=== PATIENT | female | born 1995 | race Caucasian/White ===

== ENCOUNTER 2021-06-26 23:47 | Inpatient (IN) | payer OTHER, SELFPAY ==
[2021-06-27] MEDS ORDERED: Ondansetron PF 4 MG/2 ML Vial ONE (00:08)
[2021-06-27] MEDS ORDERED: Promethazine HCl 25 MG/ML VIAL ONE (00:09)
[2021-06-27 00:10] LABS: #Basophils 0.1 10x3/uL (0.0-0.2); #Eosinphils 0.1 10x3/uL (0.0-0.5); #Monocytes 0.3 10x3/uL (0.0-1.1); #Neutrophils 9.1 10x3/uL (1.5-8.4); %Basophils 0.5 % (0.0-2.0); %Eosinophils 0.6 % (0.0-6.0); %Lymphocytes 13.2 % (18.0-47.0); %Monocytes 2.8 % (0.0-10.0); %Neutrophils 82.4 % (40.0-75.0); Mean Corpuscular HGB CONC 31.2 g/dL (32.0-36.0); Mean Corpuscular Hemoglobin 28.8 pg (27.0-33.0); Mean Corpuscular Volume 92.3 fl (81.6-98.3); Platelet Count 314 10x3/uL (150-450); RBC Distribution Width 13.9 % (11.5-14.5); Red Blood Cell (RBC) Count 4.17 10x6/uL (3.90-5.03)
[2021-06-27 00:15] LABS: Actual Bicarbonate (HCO3v) 13 mEq/L (22-28); Base Excess -13.3 mEq/L (-2.0 to +3.0); Calcium, Ionized (venous) 1.17 mmol/L (1.16-1.32); Chloride (VBG) 100 mmol/L (98-106); Hemoglobin (Hb) 13.2 g/dL (11.7-15.5); Potassium (VBG) 4.57 mmol/L (3.70-5.30); Puncture Site Other Site; Sodium 134.7 mmol/L (133-146); pH (venous) 7.24 (7.32-7.43)
[2021-06-27 00:29] LABS: ALT (SGPT) 13 U/L (8-55); AST (SGOT) 17 U/L (5-34); Albumin 4.5 g/dL (3.5-5.0); Alkaline Phosphatase 64 U/L (40-110); Anion Gap 25 mmol/L (10-20); BUN (Urea Nitrogen) 9 mg/dL (7.0-18.7); Bilirubin, Total 0.5 mg/dL (0.2-1.2); Calc. Creatinine Clearance 0 mL/min (70-130); Calcium 9.3 mg/dL (7.8-10.44); Carbon Dioxide 12 mmol/L (22-29); Chloride 103 mmol/L (98-107); Globulin 3.3 g/dL (2.4-3.5); Glucose 387 mg/dL (70-105); Potassium 4.7 mmol/L (3.5-5.1); Protein, Total 7.8 g/dL (6.0-8.3); Sodium 135 mmol/L (136-145)
[2021-06-27] MEDS ORDERED: INSULIN REGULAR IN 0.9 % NACL 100 UNIT/100 ML BAG ONE (00:56)
[2021-06-27] MEDS ORDERED: Calcium Carbonate 500 MG ChewTAB PO PRN (01:11)
[2021-06-27] MEDS ORDERED: Electrolyte Replacement Protocol IVPB SCH (01:11)
[2021-06-27] MEDS ORDERED: Guaifenesin DM 100-10/5 ML UDCUP PO PRN (01:11)
[2021-06-27] MEDS ORDERED: Acetaminophen 325 MG TAB PO PRN (01:11)
[2021-06-27] MEDS ORDERED: Lactated Ringer's 1,000 ML IV SCH (01:15)
[2021-06-27] MEDS ORDERED: INSULIN REGULAR IN 0.9 % NACL 100 UNIT in Premix Bag 1 BAG IVPB SCH (01:15)
[2021-06-27] MEDS ORDERED: Sodium Chloride 0.9% 1,000 ML IV SCH (01:15)
[2021-06-27] MEDS ORDERED: Promethazine HCl 12.5 MG in Sodium Chloride 0.9% 50 ML IVPB PRN (01:16)
[2021-06-27 01:21] LABS: BHCG - Serum POSITIVE (NEGATIVE); Pregs Control Background? CLEAR/WHITE (CLR/WHITE); Pregs Control Bar Appear? YES (CONTROL BAR)
[2021-06-27 01:28] LABS: Bilirubin Neg (Negative); Blood, Urine Negative (Negative); Clarity Slightly Cloudy (Clear); Glucose, Urine (Dipstick) >=1000 mg/dL (Negative); Ketone, Urine 150 mg/dL (Negative); Leukocyte 25 (Negative); Nitrite Negative (Negative); Protein, Urine (Dipstick) Negative (Neg-Trace); Urobilinogen Normal mg/dL (Less than 2)
[2021-06-27 01:36] LABS: Bacteria/HPF 1+ HPF (None Seen); RBC/HPF 0-3 HPF (0-3)
[2021-06-27 01:37] LABS: Mucous/LPF None Seen LPF (<2+)
[2021-06-27] MEDS ORDERED: NS 0.9% w/ 20 MEQ KCL 1,000 ML ONE (01:47)
[2021-06-27] MEDS ORDERED: Famotidine/PF 20 mg/2ml Vial SLOW IVP SCH (02:00)
[2021-06-27 02:07] LABS: SARS-CoV-2 NAA Rapid Test Not Detected (NotDetected)
[2021-06-27] MEDS: Ondansetron PF 4 MG/2 ML Vial IVP PRN ×4 (02:20→19:53)
[2021-06-27 03:15] LABS: Actual Bicarbonate (HCO3v) 15 mEq/L (22-28); Calcium, Ionized (venous) 1.11 mmol/L (1.16-1.32); Chloride (VBG) 107 mmol/L (98-106); Hemoglobin (Hb) 11.9 g/dL (11.7-15.5); Potassium (VBG) 4.06 mmol/L (3.70-5.30); Puncture Site Other Site; RapidComm Collect By CSUC.CNC; Sodium 137.6 mmol/L (133-146)
[2021-06-27 03:22] LABS: #Monocytes 0.3 10x3/uL (0.0-1.1); #Neutrophils 8.6 10x3/uL (1.5-8.4); %Basophils 0.2 % (0.0-2.0); %Eosinophils 0.2 % (0.0-6.0); %Lymphocytes 8.4 % (18.0-47.0); %Monocytes 2.6 % (0.0-10.0); %Neutrophils 88.1 % (40.0-75.0); Hemoglobin 10.8 g/dL (12.0-15.5); Mean Corpuscular HGB CONC 31.2 g/dL (32.0-36.0); Mean Corpuscular Hemoglobin 28.9 pg (27.0-33.0); Mean Corpuscular Volume 92.5 fl (81.6-98.3); Mean Platelet Volume 9.7 fl (7.4-10.4); Platelet Count 276 10x3/uL (150-450); RBC Distribution Width 13.9 % (11.5-14.5); Red Blood Cell (RBC) Count 3.74 10x6/uL (3.90-5.03); White Blood Cell (WBC) Count 9.8 10x3/uL (3.5-10.5)
[2021-06-27 03:44] LABS: Anion Gap 15 mmol/L (10-20); BUN (Urea Nitrogen) 8 mg/dL (7.0-18.7); Calc. Creatinine Clearance 118 mL/min (70-130); Calcium 7.6 mg/dL (7.8-10.44); Carbon Dioxide 14 mmol/L (22-29); Chloride 113 mmol/L (98-107); Glucose 190 mg/dL (70-105); Magnesium 1.8 mg/dL (1.6-2.6); Phosphorus 1.9 mg/dL (2.3-4.7); Potassium 4.2 mmol/L (3.5-5.1); Sodium 138 mmol/L (136-145)
[2021-06-27] MEDS: Dextrose 5 %-0.45 % NaCl 1,000 ML IV SCH (03:55)
[2021-06-27 04:44] LABS: Amphetamine Detected (NotDetected); Barbiturates Screen Not Detected (NotDetected); Benzodiazepine Screen Not Detected (NotDetected); Cocaine Metabolite Screen Not Detected (NotDetected); Methadone Not Detected (NotDetected); Methamphetamine Detected (NotDetected); Opiate Screen Not Detected (NotDetected); Oxycodone Screen Not Detected (NotDetected); Phencyclidine (PCP) Not Detected (NotDetected); THC/Cannabinoid Screen Detected (NotDetected); Tricyclic Screen Not Detected (NotDetected)
[2021-06-27] MEDS ORDERED: Potassium Phosphate 30 MMOL in Sodium Chloride 0.9% 500 ML IVPB SCH (05:15)
[2021-06-27] MEDS ORDERED: Dextrose 5% in Water 1,000 ML IV PRN ×2 (05:30→08:30)
[2021-06-27] MEDS ORDERED: Dextrose 50% Abboject 50 ML SYRINGE IVP PRN (05:30)
[2021-06-27] MEDS ORDERED: Magnesium 2 GM/50 ML 2 GM in Premix Bag 1 BAG IVPB SCH (06:15)
[2021-06-27 07:58] LABS: Actual Bicarbonate (HCO3v) 21 mEq/L (22-28); Base Excess -4.5 mEq/L (-2.0 to +3.0); Calcium, Ionized (venous) 1.05 mmol/L (1.16-1.32); Chloride (VBG) 107 mmol/L (98-106); Hemoglobin (Hb) 11.2 g/dL (11.7-15.5); Potassium (VBG) 3.68 mmol/L (3.70-5.30); Puncture Site Other Site; RapidComm Collect By LAB; Sodium 134.7 mmol/L (133-146); pH (venous) 7.33 (7.32-7.43)
[2021-06-27 08:02] LABS: Anion Gap 10 mmol/L (10-20); BUN (Urea Nitrogen) 8 mg/dL (7.0-18.7); Calc. Creatinine Clearance 138 mL/min (70-130); Calcium 7.3 mg/dL (7.8-10.44); Carbon Dioxide 18 mmol/L (22-29); Chloride 111 mmol/L (98-107); Glucose 113 mg/dL (70-105); Magnesium 1.7 mg/dL (1.6-2.6); Phosphorus 2.4 mg/dL (2.3-4.7); Potassium 3.7 mmol/L (3.5-5.1); Sodium 135 mmol/L (136-145)
[2021-06-27] MEDS: Enoxaparin Sodium 40 MG/0.4 ML SYRINGE SC SCH (08:25)
[2021-06-27] MEDS: Famotidine/PF 20 mg/2ml Vial SLOW IVP SCH ×2 (08:25→20:22)
[2021-06-27] MEDS ORDERED: Dextrose 50% Abboject 50 ML SYRINGE SLOW IVP PRN (08:30)
[2021-06-27] MEDS: Lantus 1000 UNITS/10 ML VIAL SC SCH (09:02)
[2021-06-27] MEDS ORDERED: NS 0.9% w/ 20 MEQ KCL 1,000 ML/1,000 ML BAG IV SCH (10:30)
[2021-06-27] MEDS: HYDROcodone/Acetaminophen 5/325 mg Tablet PO PRN ×2 (11:39→19:53)
[2021-06-27 11:45] LABS: Hemoglobin A1c 11.1 % (4.0-6.0)
[2021-06-27 12:42] LABS: Anion Gap 12 mmol/L (10-20); BUN (Urea Nitrogen) 8 mg/dL (7.0-18.7); Calc. Creatinine Clearance 132 mL/min (70-130); Calcium 7.5 mg/dL (7.8-10.44); Carbon Dioxide 18 mmol/L (22-29); Chloride 109 mmol/L (98-107); Glucose 90 mg/dL (70-105); Magnesium 2.5 mg/dL (1.6-2.6); Phosphorus 4.1 mg/dL (2.3-4.7); Potassium 4.3 mmol/L (3.5-5.1); Sodium 135 mmol/L (136-145)
[2021-06-27] MEDS: HumaLOG 300 UNITS/3 ML VIAL SC PRN ×2 (15:18→22:26)
[2021-06-28] MEDS: Ondansetron PF 4 MG/2 ML Vial IVP PRN ×2 (04:12→14:16)
[2021-06-28 05:46] LABS: Anion Gap 9 mmol/L (10-20); BUN (Urea Nitrogen) 6 mg/dL (7.0-18.7); Calc. Creatinine Clearance 134 mL/min (70-130); Calcium 7.9 mg/dL (7.8-10.44); Carbon Dioxide 22 mmol/L (22-29); Chloride 109 mmol/L (98-107); Glucose 72 mg/dL (70-105); Magnesium 2.1 mg/dL (1.6-2.6); Phosphorus 2.5 mg/dL (2.3-4.7); Potassium 3.6 mmol/L (3.5-5.1); Sodium 136 mmol/L (136-145)
[2021-06-28] MEDS: HumaLOG 300 UNITS/3 ML VIAL SC PRN ×2 (06:31→22:36)
[2021-06-28] MEDS: Famotidine/PF 20 mg/2ml Vial SLOW IVP SCH (08:56)
[2021-06-28] MEDS: Lantus 1000 UNITS/10 ML VIAL SC SCH (08:56)
[2021-06-28] MEDS: Enoxaparin Sodium 40 MG/0.4 ML SYRINGE SC SCH (10:03)
[2021-06-28] MEDS ORDERED: Docusate 100 MG CAP PO PRN (13:58)
[2021-06-28] MEDS ORDERED: Bisacodyl 10 MG SUPP PR SCH (14:00)
[2021-06-28] MEDS ORDERED: Lidocaine 2% Viscous Solution 20 ML, Aluminum & Magnesium Hydroxide 30 ML, Donnatal Eli... SSW SCH (14:00)
[2021-06-28] MEDS ORDERED: Morphine 4 MG/ML VIAL SLOW IVP SCH (14:00)
[2021-06-28] MEDS: NS 0.9% w/ 20 MEQ KCL 1,000 ML/1,000 ML BAG IV SCH ×2 (14:09→21:33)
[2021-06-28] MEDS ORDERED: Lidocaine 2% Viscous Solution 10 ML, Aluminum & Magnesium Hydroxide 30 ML SSW SCH (14:30)
[2021-06-28] MEDS: Dextrose 5 %-0.45 % NaCl 1,000 ML IV SCH (14:32)
[2021-06-28] MEDS: HYDROcodone/Acetaminophen 5/325 mg Tablet PO PRN (16:06)
[2021-06-28] MEDS: Dicyclomine 10 MG CAP PO SCH ×2 (16:06→21:33)
[2021-06-28] MEDS: Pantoprazole 40 MG VIAL IVP SCH (21:35)
[2021-06-29 09:33] LABS: #Monocytes 0.5 10x3/uL (0.0-1.1); #Neutrophils 7.2 10x3/uL (1.5-8.4); %Basophils 0.3 % (0.0-2.0); %Eosinophils 0.2 % (0.0-6.0); %Lymphocytes 12.6 % (18.0-47.0); %Monocytes 5.1 % (0.0-10.0); %Neutrophils 81.3 % (40.0-75.0); Hemoglobin 10.1 g/dL (12.0-15.5); Mean Corpuscular HGB CONC 31.3 g/dL (32.0-36.0); Mean Corpuscular Hemoglobin 28.1 pg (27.0-33.0); Mean Platelet Volume 9.9 fl (7.4-10.4); Platelet Count 246 10x3/uL (150-450); RBC Distribution Width 13.9 % (11.5-14.5); Red Blood Cell (RBC) Count 3.59 10x6/uL (3.90-5.03); White Blood Cell (WBC) Count 8.8 10x3/uL (3.5-10.5)
[2021-06-29 09:58] LABS: Anion Gap 13 mmol/L (10-20); BUN (Urea Nitrogen) 6 mg/dL (7.0-18.7); Calc. Creatinine Clearance 134 mL/min (70-130); Calcium 7.9 mg/dL (7.8-10.44); Carbon Dioxide 20 mmol/L (22-29); Chloride 106 mmol/L (98-107); Glucose 258 mg/dL (70-105); Magnesium 1.9 mg/dL (1.6-2.6); Potassium 4.4 mmol/L (3.5-5.1); Sodium 135 mmol/L (136-145)
[2021-06-29] MEDS: Dicyclomine 10 MG CAP PO SCH ×4 (10:42→20:56)
[2021-06-29] MEDS: Lantus 1000 UNITS/10 ML VIAL SC SCH (10:42)
[2021-06-29] MEDS: HYDROcodone/Acetaminophen 5/325 mg Tablet PO PRN ×2 (10:47→20:56)
[2021-06-29] MEDS ORDERED: Mag-Al Plus 1200 MG/1200 MG/120 MG/30 ML UDCUP PO PRN (10:55)
[2021-06-29] MEDS: Enoxaparin Sodium 40 MG/0.4 ML SYRINGE SC SCH (11:32)
[2021-06-29] MEDS ORDERED: Magnesium 2 GM/50 ML 2 GM in Premix Bag 1 BAG IVPB SCH (12:00)
[2021-06-29] MEDS: Pantoprazole 40 MG VIAL IVP SCH ×3 (13:37→20:56)
[2021-06-29] MEDS: NS 0.9% w/ 20 MEQ KCL 1,000 ML/1,000 ML BAG IV SCH ×2 (13:38→15:53)
[2021-06-29] MEDS: Ondansetron PF 4 MG/2 ML Vial IVP PRN ×2 (14:29→20:55)
[2021-06-30] MEDS: NS 0.9% w/ 20 MEQ KCL 1,000 ML/1,000 ML BAG IV SCH (00:48)
[2021-06-30 05:17] LABS: #Eosinphils 0.1 10x3/uL (0.0-0.5); #Monocytes 0.6 10x3/uL (0.0-1.1); #Neutrophils 4.6 10x3/uL (1.5-8.4); %Basophils 0.4 % (0.0-2.0); %Eosinophils 1.7 % (0.0-6.0); %Lymphocytes 30.1 % (18.0-47.0); %Monocytes 7.3 % (0.0-10.0); %Neutrophils 60.2 % (40.0-75.0); Hemoglobin 9.7 g/dL (12.0-15.5); Mean Corpuscular HGB CONC 32.7 g/dL (32.0-36.0); Mean Corpuscular Volume 88.7 fl (81.6-98.3); Platelet Count 242 10x3/uL (150-450); RBC Distribution Width 14.3 % (11.5-14.5); Red Blood Cell (RBC) Count 3.35 10x6/uL (3.90-5.03); White Blood Cell (WBC) Count 7.7 10x3/uL (3.5-10.5)
[2021-06-30 05:30] LABS: Anion Gap 11 mmol/L (10-20); BUN (Urea Nitrogen) 6 mg/dL (7.0-18.7); Calc. Creatinine Clearance 134 mL/min (70-130); Calcium 7.8 mg/dL (7.8-10.44); Carbon Dioxide 22 mmol/L (22-29); Chloride 108 mmol/L (98-107); Magnesium 1.8 mg/dL (1.6-2.6); Potassium 3.7 mmol/L (3.5-5.1); Sodium 137 mmol/L (136-145)
[2021-06-30 05:32] LABS: Glucose 48 mg/dL (70-105)
[2021-06-30] MEDS: HYDROcodone/Acetaminophen 5/325 mg Tablet PO PRN ×2 (05:58→09:43)
[2021-06-30] MEDS: Ondansetron PF 4 MG/2 ML Vial IVP PRN ×2 (05:58→11:21)
[2021-06-30] MEDS ORDERED: Magnesium 2 GM/50 ML 2 GM in Premix Bag 1 BAG IVPB SCH (06:15)
[2021-06-30 08:02] VITALS: BMI 23.0
[2021-06-30] MEDS: Enoxaparin Sodium 40 MG/0.4 ML SYRINGE SC SCH (09:44)
[2021-06-30] MEDS: Dicyclomine 10 MG CAP PO SCH (09:44)
[2021-06-30] MEDS: Lantus 1000 UNITS/10 ML VIAL SC SCH (09:45)
[2021-06-30] MEDS: Pantoprazole 40 MG VIAL IVP SCH (09:45)
[2021-06-30 12:27] VITALS: BP 98/55; TEMP 98.9
== END 2021-06-30 13:01 | disposition home or self-care (01) | DRG 831 ==
LOC: CSHERS 23:47 → EDBD 06-27 01:47 → CSHIMCU 06-27 01:47 → CSHTELE 06-27 23:23
PROVIDERS: ADMIT Student in an Organized Health Care Education/Training Program; ATTEND Internal Medicine
DX: O24.011 Pre-existing type 1 diabetes mellitus, in pregnancy, first trimester (principal); E10.10 Type 1 diabetes mellitus with ketoacidosis without coma; O99.321 Drug use complicating pregnancy, first trimester; E86.0 Dehydration; F12.10 Cannabis abuse, uncomplicated; Z20.822 Contact with and (suspected) exposure to COVID-19; F32.A Depression, unspecified; F15.10 Other stimulant abuse, uncomplicated; O99.281 Endocrine, nutritional and metabolic diseases complicating pregnancy, first trimester; O99.341 Other mental disorders complicating pregnancy, first trimester; F41.9 Anxiety disorder, unspecified; F43.10 Post-traumatic stress disorder, unspecified; Z90.49 Acquired absence of other specified parts of digestive tract; Z3A.01 Less than 8 weeks gestation of pregnancy
CPT/HCPCS: 36415; 36416; 71045; 80048; 80053; 80306; 81003; 81015; 82010; 82805; 83036; 83735; 84100; 84702; 84703; 85025; C9113; J1815; J2270; J2405; J2550; J3475; J3480; J7030; J7042; J7050; S0028; U0002

== ENCOUNTER 2021-07-08 11:38 | Emergency (ER) | payer OTHER ==
[2021-07-08] MEDS ORDERED: Ondansetron PF 4 MG/2 ML Vial ONE (12:23)
[2021-07-08 12:29] LABS: #Basophils 0.1 10x3/uL (0.0-0.2); #Eosinphils 0.2 10x3/uL (0.0-0.5); #Monocytes 0.5 10x3/uL (0.0-1.1); #Neutrophils 6.2 10x3/uL (1.5-8.4); %Basophils 0.6 % (0.0-2.0); %Eosinophils 1.7 % (0.0-6.0); %Lymphocytes 21.8 % (18.0-47.0); %Monocytes 5.2 % (0.0-10.0); %Neutrophils 70.5 % (40.0-75.0); Hemoglobin 10.5 g/dL (12.0-15.5); Mean Corpuscular HGB CONC 32.4 g/dL (32.0-36.0); Mean Corpuscular Hemoglobin 28.9 pg (27.0-33.0); Mean Corpuscular Volume 89.3 fl (81.6-98.3); Mean Platelet Volume 9.2 fl (7.4-10.4); Platelet Count 297 10x3/uL (150-450); RBC Distribution Width 14.1 % (11.5-14.5); Red Blood Cell (RBC) Count 3.63 10x6/uL (3.90-5.03); White Blood Cell (WBC) Count 8.8 10x3/uL (3.5-10.5)
[2021-07-08 12:35] LABS: Actual Bicarbonate (HCO3v) 23 mEq/L (22-28); Base Excess 0.1 mEq/L (-2.0 to +3.0); Calcium, Ionized (venous) 1.07 mmol/L (1.16-1.32); Chloride (VBG) 100 mmol/L (98-106); Hemoglobin (Hb) 11.3 g/dL (11.7-15.5); Potassium (VBG) 4.12 mmol/L (3.70-5.30); Puncture Site Other Site; Sodium 131.5 mmol/L (133-146); pH (venous) 7.49 (7.32-7.43)
[2021-07-08 12:43] LABS: ALT (SGPT) 12 U/L (8-55); AST (SGOT) 9 U/L (5-34); Albumin 3.9 g/dL (3.5-5.0); Alkaline Phosphatase 56 U/L (40-110); Anion Gap 13 mmol/L (10-20); BUN (Urea Nitrogen) 11 mg/dL (7.0-18.7); Bilirubin, Total 0.3 mg/dL (0.2-1.2); Calc. Creatinine Clearance 0 mL/min (70-130); Calcium 8.8 mg/dL (7.8-10.44); Carbon Dioxide 25 mmol/L (22-29); Chloride 101 mmol/L (98-107); Globulin 2.7 g/dL (2.4-3.5); Glucose 255 mg/dL (70-105); Lipase 50 U/L (8-78); Magnesium 1.8 mg/dL (1.6-2.6); Protein, Total 6.6 g/dL (6.0-8.3); Sodium 135 mmol/L (136-145)
[2021-07-08 13:41] LABS: Bilirubin Neg (Negative); Blood, Urine Negative (Negative); Clarity Slightly Cloudy (Clear); Glucose, Urine (Dipstick) >=1000 mg/dL (Negative); Ketone, Urine Negative (Negative); Leukocyte 100 (Negative); Nitrite Negative (Negative); Protein, Urine (Dipstick) Negative (Neg-Trace); Urobilinogen Normal mg/dL (Less than 2)
[2021-07-08 14:06] LABS: Bacteria/HPF 2+ HPF (None Seen); RBC/HPF 0-3 HPF (0-3); Trichomonas/HPF 1+ HPF (None Seen); WBC/HPF 0-3 HPF (0-3)
[2021-07-08] MEDS ORDERED: cefTRIAXone\\ROCEPHIN 1 GM VIAL ONE (15:09)
[2021-07-08] MEDS ORDERED: metroNIDAZOLE 500 MG TAB ONE (15:14)
== END 2021-07-08 15:32 | disposition home or self-care (01) ==
LOC: CSHERS 11:38
DX: O99.281 Endocrine, nutritional and metabolic diseases complicating pregnancy, first trimester (principal); E10.65 Type 1 diabetes mellitus with hyperglycemia; O23.41 Unspecified infection of urinary tract in pregnancy, first trimester; Z3A.11 11 weeks gestation of pregnancy
CPT/HCPCS: 36415; 36416; 80053; 81003; 81015; 82010; 82805; 83605; 83690; 83735; 84702; 85025; 93005; 96374; 96375; J0696; J2405

== ENCOUNTER 2021-07-18 07:25 | Inpatient (IN) | payer OTHER ==
[2021-07-18] MEDS ORDERED: Ondansetron PF 4 MG/2 ML Vial ONE (08:08)
[2021-07-18 08:13] LABS: Actual Bicarbonate (HCO3v) 23 mEq/L (22-28); Base Excess -3.4 mEq/L (-2.0 to +3.0); Calcium, Ionized (venous) 1.15 mmol/L (1.16-1.32); Chloride (VBG) 98 mmol/L (98-106); Hemoglobin (Hb) 12.2 g/dL (11.7-15.5); Potassium (VBG) 4.34 mmol/L (3.70-5.30); Puncture Site Other Site; RapidComm Collect By CBL; Sodium 124.8 mmol/L (133-146); pH (venous) 7.32 (7.32-7.43)
[2021-07-18 08:20] LABS: #Basophils 0.1 10x3/uL (0.0-0.2); #Eosinphils 0.2 10x3/uL (0.0-0.5); #Monocytes 0.7 10x3/uL (0.0-1.1); #Neutrophils 13.3 10x3/uL (1.5-8.4); %Basophils 0.4 % (0.0-2.0); %Eosinophils 1.4 % (0.0-6.0); %Lymphocytes 9.8 % (18.0-47.0); %Monocytes 4.3 % (0.0-10.0); %Neutrophils 83.7 % (40.0-75.0); Hemoglobin 11.4 g/dL (12.0-15.5); Mean Corpuscular HGB CONC 32.9 g/dL (32.0-36.0); Mean Corpuscular Hemoglobin 28.8 pg (27.0-33.0); Mean Corpuscular Volume 87.4 fl (81.6-98.3); Mean Platelet Volume 9.5 fl (7.4-10.4); Platelet Count 330 10x3/uL (150-450); RBC Distribution Width 13.6 % (11.5-14.5); Red Blood Cell (RBC) Count 3.96 10x6/uL (3.90-5.03); White Blood Cell (WBC) Count 15.9 10x3/uL (3.5-10.5)
[2021-07-18 08:23] LABS: Magnesium 1.9 mg/dL (1.6-2.6)
[2021-07-18 08:26] LABS: ALT (SGPT) 10 U/L (8-55); AST (SGOT) 9 U/L (5-34); Albumin 4.2 g/dL (3.5-5.0); Alkaline Phosphatase 70 U/L (40-110); Anion Gap 16 mmol/L (10-20); BUN (Urea Nitrogen) 10 mg/dL (7.0-18.7); Bilirubin, Total 0.6 mg/dL (0.2-1.2); Calc. Creatinine Clearance 0 mL/min (70-130); Calcium 9.1 mg/dL (7.8-10.44); Carbon Dioxide 22 mmol/L (22-29); Chloride 99 mmol/L (98-107); Globulin 2.8 g/dL (2.4-3.5); Glucose 374 mg/dL (70-105); Lipase 40 U/L (8-78); Phosphorus 4.3 mg/dL (2.3-4.7); Potassium 4.5 mmol/L (3.5-5.1); Sodium 132 mmol/L (136-145)
[2021-07-18] MEDS ORDERED: Pantoprazole 40 MG VIAL ONE (08:39)
[2021-07-18] MEDS ORDERED: Insulin Regular 300 UNITS/3 ML VIAL ONE (08:40)
[2021-07-18] MEDS ORDERED: Azithromycin 500 MG VIAL ONE (09:17)
[2021-07-18] MEDS ORDERED: Acetaminophen 500 MG TAB ONE (09:30)
[2021-07-18 10:02] LABS: Bilirubin Neg (Negative); Blood, Urine Negative (Negative); Clarity Slightly Cloudy (Clear); Glucose, Urine (Dipstick) >=1000 mg/dL (Negative); Ketone, Urine 50 mg/dL (Negative); Leukocyte 500 (Negative); Nitrite Negative (Negative); Protein, Urine (Dipstick) Negative (Neg-Trace); Specific Gravity, Urine 1.015 (1.002-1.036); Urobilinogen Normal mg/dL (Less than 2)
[2021-07-18 10:17] LABS: RBC/HPF 0-3 HPF (0-3)
[2021-07-18 10:18] LABS: Bacteria/HPF 2+ HPF (None Seen)
[2021-07-18] MEDS ORDERED: Dextrose 5% in Water 1,000 ML IV PRN (10:47)
[2021-07-18] MEDS ORDERED: Dextrose 50% Abboject 50 ML SYRINGE SLOW IVP PRN (10:47)
[2021-07-18 11:22] LABS: SARS-CoV-2 NAA Rapid Test Not Detected (NotDetected)
[2021-07-18] MEDS: Ondansetron PF 4 MG/2 ML Vial IVP PRN ×2 (13:21→18:20)
[2021-07-18 13:31] VITALS: BMI 21.4
[2021-07-18] MEDS: Sodium Chloride 0.9% 1,000 ML IV SCH (13:43)
[2021-07-18] MEDS: metroNIDAZOLE 500 MG in Premix Bag 1 BAG IVPB SCH (13:54)
[2021-07-18] MEDS ORDERED: Promethazine HCl 6.25 MG in Sodium Chloride 0.9% 50 ML IVPB PRN (13:57)
[2021-07-18] MEDS ORDERED: Metoclopramide HCl 10 MG TAB PO PRN (15:37)
[2021-07-18] MEDS ORDERED: ALPRAZolam 1 MG TAB PO PRN (15:37)
[2021-07-18] MEDS ORDERED: Propranolol 40 MG TAB PO PRN (15:37)
[2021-07-18] MEDS: HumaLOG 300 UNITS/3 ML VIAL SC PRN (16:26)
[2021-07-18] MEDS ORDERED: Clindamycin 150 MG CAP PO SCH (17:00)
[2021-07-18] MEDS ORDERED: Cepastat Lozenges 1 LOZ PO PRN (18:05)
[2021-07-18] MEDS: Dicyclomine 20 MG TAB PO SCH ×2 (18:20→22:14)
[2021-07-18] MEDS: Clindamycin/D5W 300 MG/50 ML BAG IVPB SCH (18:21)
[2021-07-18] MEDS ORDERED: Acetaminophen 325 MG TAB PO PRN (18:32)
[2021-07-18] MEDS ORDERED: FLU VACC QS2021-22(6MOS UP)/PF 60 MCG/0.5 ML SYRINGE IM ONE (21:45)
[2021-07-18] MEDS: Mirtazapine 15 MG TAB PO SCH (22:15)
[2021-07-18] MEDS: Lantus 1000 UNITS/10 ML VIAL SC SCH (22:15)
[2021-07-19] MEDS: Ondansetron PF 4 MG/2 ML Vial IVP PRN ×3 (01:08→13:07)
[2021-07-19] MEDS: Sodium Chloride 0.9% 1,000 ML IV SCH ×3 (01:08→16:14)
[2021-07-19] MEDS: metroNIDAZOLE 500 MG in Premix Bag 1 BAG IVPB SCH ×2 (01:11→13:06)
[2021-07-19] MEDS: Clindamycin/D5W 300 MG/50 ML BAG IVPB SCH ×3 (02:35→17:35)
[2021-07-19 04:45] LABS: #Basophils 0.1 10x3/uL (0.0-0.2); #Eosinphils 0.2 10x3/uL (0.0-0.5); #Monocytes 0.5 10x3/uL (0.0-1.1); #Neutrophils 8.3 10x3/uL (1.5-8.4); %Basophils 0.5 % (0.0-2.0); %Lymphocytes 15.6 % (18.0-47.0); %Monocytes 4.8 % (0.0-10.0); %Neutrophils 76.4 % (40.0-75.0); Hemoglobin 9.4 g/dL (12.0-15.5); Mean Corpuscular HGB CONC 33.5 g/dL (32.0-36.0); Mean Corpuscular Hemoglobin 29.5 pg (27.0-33.0); Mean Corpuscular Volume 88.1 fl (81.6-98.3); Mean Platelet Volume 9.7 fl (7.4-10.4); Platelet Count 272 10x3/uL (150-450); RBC Distribution Width 13.8 % (11.5-14.5); Red Blood Cell (RBC) Count 3.19 10x6/uL (3.90-5.03); White Blood Cell (WBC) Count 10.8 10x3/uL (3.5-10.5)
[2021-07-19 04:49] LABS: Anion Gap 13 mmol/L (10-20); BUN (Urea Nitrogen) 5 mg/dL (7.0-18.7); Calc. Creatinine Clearance 135 mL/min (70-130); Calcium 8.1 mg/dL (7.8-10.44); Carbon Dioxide 19 mmol/L (22-29); Chloride 107 mmol/L (98-107); Glucose 238 mg/dL (70-105); Potassium 3.9 mmol/L (3.5-5.1); Sodium 135 mmol/L (136-145)
[2021-07-19] MEDS: Prenatal Vitamin 1 TAB PO SCH (08:14)
[2021-07-19] MEDS: Dicyclomine 20 MG TAB PO SCH ×3 (08:14→20:47)
[2021-07-19 10:18] LABS: Bilirubin Neg (Negative); Blood, Urine Negative (Negative); Clarity Slightly Cloudy (Clear); Glucose, Urine (Dipstick) >=1000 mg/dL (Negative); Ketone, Urine 150 mg/dL (Negative); Leukocyte 500 (Negative); Nitrite Negative (Negative); Protein, Urine (Dipstick) 15 mg/dl (Neg-Trace); Specific Gravity, Urine 1.015 (1.002-1.036); Urobilinogen Normal mg/dL (Less than 2)
[2021-07-19 10:26] LABS: Amphetamine Not Detected (NotDetected); Barbiturates Screen Not Detected (NotDetected); Benzodiazepine Screen Detected (NotDetected); Cocaine Metabolite Screen Not Detected (NotDetected); Methadone Not Detected (NotDetected); Methamphetamine Not Detected (NotDetected); Opiate Screen Not Detected (NotDetected); Oxycodone Screen Not Detected (NotDetected); Phencyclidine (PCP) Not Detected (NotDetected); THC/Cannabinoid Screen Detected (NotDetected); Tricyclic Screen Not Detected (NotDetected)
[2021-07-19] MEDS ORDERED: Benzocaine 20% Spray 60 ML CAN PO SCH (10:30)
[2021-07-19 10:31] LABS: Bacteria/HPF 2+ HPF (None Seen)
[2021-07-19 10:34] LABS: Urine Culture Reflex No No
[2021-07-19] MEDS: HumaLOG 300 UNITS/3 ML VIAL SC PRN (11:45)
[2021-07-19] MEDS ORDERED: metroNIDAZOLE 500 MG/100 ML BAG ONE (13:08)
[2021-07-19] MEDS ORDERED: pyridOXINE 50 MG (B6) TAB PO SCH (15:00)
[2021-07-19] MEDS: HumaLOG 300 UNITS/3 ML VIAL SC SCH (16:13)
[2021-07-19 19:44] LABS: Chlam.trachomatis by PCR,Urine Not Detected (NotDetected)
[2021-07-19 20:08] LABS: Hemoglobin A1c 9.4 % (4.0-6.0)
[2021-07-19] MEDS: pyridOXINE 50 MG (B6) TAB PO SCH (20:48)
[2021-07-19] MEDS: Mirtazapine 15 MG TAB PO SCH (20:51)
[2021-07-19] MEDS: Lantus 1000 UNITS/10 ML VIAL SC SCH (21:06)
[2021-07-19 21:47] LABS: Bilirubin Neg (Negative); Blood, Urine Negative (Negative); Clarity Clear (Clear); Glucose, Urine (Dipstick) >=1000 mg/dL (Negative); Ketone, Urine 150 mg/dL (Negative); Leukocyte 25 (Negative); Nitrite Negative (Negative); Protein, Urine (Dipstick) Negative (Neg-Trace); Specific Gravity, Urine 1.015 (1.002-1.036); Urobilinogen Normal mg/dL (Less than 2)
[2021-07-19 21:56] LABS: Urine Culture Reflex No No
[2021-07-19 22:00] LABS: Bacteria/HPF Rare-Few HPF (None Seen); RBC/HPF None Seen HPF (0-3); Squamous Epithelial 0-3 HPF (0-3); WBC/HPF 0-3 HPF (0-3)
[2021-07-20] MEDS: metroNIDAZOLE 500 MG in Premix Bag 1 BAG IVPB SCH (02:09)
[2021-07-20] MEDS: Clindamycin/D5W 300 MG/50 ML BAG IVPB SCH ×2 (02:09→08:32)
[2021-07-20] MEDS: Sodium Chloride 0.9% 1,000 ML IV SCH (03:39)
[2021-07-20 05:24] LABS: Iron 32 ug/dL (50-170); Iron Binding Capacity, Total 314 mcg/dL (265-497)
[2021-07-20 05:27] LABS: #Eosinphils 0.2 10x3/uL (0.0-0.5); #Monocytes 0.4 10x3/uL (0.0-1.1); #Neutrophils 3.9 10x3/uL (1.5-8.4); %Basophils 0.6 % (0.0-2.0); %Eosinophils 3.4 % (0.0-6.0); %Lymphocytes 30.7 % (18.0-47.0); %Monocytes 5.5 % (0.0-10.0); %Neutrophils 59.5 % (40.0-75.0); Hemoglobin 9.6 g/dL (12.0-15.5); Mean Corpuscular HGB CONC 33.7 g/dL (32.0-36.0); Mean Corpuscular Hemoglobin 29.6 pg (27.0-33.0); Mean Platelet Volume 9.3 fl (7.4-10.4); Platelet Count 282 10x3/uL (150-450); RBC Distribution Width 13.6 % (11.5-14.5); Red Blood Cell (RBC) Count 3.24 10x6/uL (3.90-5.03); White Blood Cell (WBC) Count 6.5 10x3/uL (3.5-10.5)
[2021-07-20 05:40] LABS: Ferritin 45.43 ng/mL (10-291); Syphilis Antibody Nonreactive (Nonreactive); Syphilis Antibody Index 0.05 S/CO (<1.00 Non-Reactive)
[2021-07-20 05:54] LABS: Anion Gap 11 mmol/L (10-20); BUN (Urea Nitrogen) 4 mg/dL (7.0-18.7); Calc. Creatinine Clearance 137 mL/min (70-130); Carbon Dioxide 20 mmol/L (22-29); Chloride 109 mmol/L (98-107); Glucose 176 mg/dL (70-105); Iron 29 ug/dL (50-170); Iron Binding Capacity, Total 315 mcg/dL (265-497); Magnesium 1.8 mg/dL (1.6-2.6); Potassium 3.8 mmol/L (3.5-5.1); Sodium 136 mmol/L (136-145)
[2021-07-20 06:15] LABS: Calcium 8.3 mg/dL (7.8-10.44); Phosphorus 2.7 mg/dL (2.3-4.7)
[2021-07-20 08:09] VITALS: BP 101/55; TEMP 98.2
[2021-07-20] MEDS: HumaLOG 300 UNITS/3 ML VIAL SC SCH (08:28)
[2021-07-20] MEDS: pyridOXINE 50 MG (B6) TAB PO SCH (08:29)
[2021-07-20] MEDS: Dicyclomine 20 MG TAB PO SCH (08:29)
[2021-07-20] MEDS: Prenatal Vitamin 1 TAB PO SCH (08:29)
[2021-07-20 12:49] LABS: Hep C IgG Ab Non-Reactive (NonReactive); Hep C Index 0.06 S/CO (0-0.79)
== END 2021-07-20 11:26 | disposition home or self-care (01) | DRG 832 ==
LOC: CSHERS 07:25 → CSHTELE 12:49 → OBSVTOIN 07-19 16:59
PROVIDERS: ADMIT Internal Medicine; ATTEND Family Medicine
DX: O24.011 Pre-existing type 1 diabetes mellitus, in pregnancy, first trimester (principal); O99.321 Drug use complicating pregnancy, first trimester; O98.811 Other maternal infectious and parasitic diseases complicating pregnancy, first trimester; Z91.14 Patient's other noncompliance with medication regimen; J02.0 Streptococcal pharyngitis; O99.511 Diseases of the respiratory system complicating pregnancy, first trimester; Z71.51 Drug abuse counseling and surveillance of drug abuser; E10.65 Type 1 diabetes mellitus with hyperglycemia; F12.10 Cannabis abuse, uncomplicated; E86.0 Dehydration; O99.281 Endocrine, nutritional and metabolic diseases complicating pregnancy, first trimester; F43.10 Post-traumatic stress disorder, unspecified; F32.A Depression, unspecified; D64.9 Anemia, unspecified; O99.011 Anemia complicating pregnancy, first trimester; Z20.822 Contact with and (suspected) exposure to COVID-19; F41.0 Panic disorder [episodic paroxysmal anxiety]; O99.341 Other mental disorders complicating pregnancy, first trimester; F15.10 Other stimulant abuse, uncomplicated; Z79.4 Long term (current) use of insulin; Z79.899 Other long term (current) drug therapy; Z88.1 Allergy status to other antibiotic agents; Z3A.12 12 weeks gestation of pregnancy; Z90.49 Acquired absence of other specified parts of digestive tract; A59.9 Trichomoniasis, unspecified
CPT/HCPCS: 36415; 36416; 80048; 80053; 80306; 81001; 81003; 81015; 82010; 82728; 82805; 83036; 83540; 83550; 83690; 83735; 84100; 85025; 86780; 86803; 86850; 86900; 86901; 87086; 87430; 87491; 87591; 96365; 96375; 96376; C9113; G0378; J0456; J1815; J2405; J2550; J3490; J7050; U0002